=== PATIENT | male | born 1975 | race African-American/Black ===

== ENCOUNTER 2020-01-13 10:41 | Emergency (ER) | payer MEDICAID, SELFPAY ==
[2020-01-13 10:42] VITALS: BP 128/83; PULSE 73; RESP 18; TEMP 36.7; O2SAT 99; BMI 21.5
--- NOTE | 2020-01-13 11:07 | RAD_ITS ---
STUDY: X-RAY - LEFT FOOT CLINICAL: Male, 44 years old. Pain, swelling TECHNIQUE: 3 view(s) of the foot. COMPARISON: None. FINDINGS: Normal talus, calcaneus, and tarsal bones. Normal visualized subtalar, talonavicular, calcaneocuboid, tarsal and tarsometatarsal articulations. Normal metatarsi. There is degenerative arthrosis of the metatarsophalangeal joint of the hallux . Normal tibial and fibular sesamoid bones. Normal interphalangeal joint of the great toe. Normal phalanges of the great toe. Normal second through fifth metatarsophalangeal joints. Normal interphalangeal joints and phalanges of the lesser toes. The soft tissue structures are unremarkable. RAD/Foot min 3 Views IMPRESSION: First MTP joint arthrosis, otherwise unremarkable left foot Electronically Signed: Steven Shane MD at 11:20 EDT , Service support ,
--- NOTE | 2020-01-13 11:25 | ED.VIS.GEN ---
History of Present Illness Chief Complaint: Lower Extremity Injury Informant: Patient Onset: Days Maximum Severity: Mild Narrative: The patient presents complaining of left foot discomfort for a few days no specific trauma that he can recall history of gout or arthritis but he has pain over the third fourth and fifth toes of his left foot no ankle pain no heel pain no symptoms with the other foot his other health conditions are stable Coronavirus emergency is in fact no exposures Past Medical History - Allergies and Home Meds Allergies/Adverse Reactions: Allergies Penicillins Allergy (Verified 01/13/20 10:43) Hives Primary Care Physician: Miguel Acosta MD [Primary Care Provider] - Past Medical History: - Smoking Status: Never smoker Review of Systems ROS: - I really disorder General: Denies: Chills, Fever, Sweats Eyes: Denies: Visual changes - bilaterally, Diplopia ENT: Denies: Rhinorrhea, Sore throat Cardiovascular: Denies: Chest pain, Palpitations Respiratory: Denies: Dyspnea, Cough, Dyspnea on exertion Gastrointestinal: Denies: Abdominal pain, Nausea, Vomiting, Diarrhea, Melena, Hematochezia Genitourinary: Denies: Dysuria, Hematuria, Frequency Musculoskeletal: Reports: Extremity Pain. Denies: Back pain Skin: Denies: Rash, Wounds Neurological: Denies: Headache, Weakness, Numbness Physical Exam Vital Signs/Narrative: Vital Signs Temp Pulse Resp BP Pulse Ox 01/13/20 10:42 98.1 F 73 18 128/83 H 99 General: Well nourished, Well developed, No Acute Distress Head: Normocephalic, Atraumatic Eyes: Perrl, EOMI ENT: Moist mucous membranes, No rhinorrhea Neck: Supple, Nontender Cardiovascular: Regular rate, Regular rhythm, No murmurs Respiratory: No distress, CTA bilaterally, Chest nontender Abdomen: Soft, Nontender, Nondistended, Normal bowel sounds Back: Nontender, Normal Inspection Extremities: No edema, - - He has some discomfort over the dorsal foot primarily involving the third fourth and fifth toe webspace area he has obvious athlete's foot type fungus here and has some very slight reddish discoloration to the skin over the dorsal foot he has full range of motion of the toes ankle unremarkable full range of motion tib-fib knee negative plantar surface unremarkable, no skin breakdown no signs of any type of active infection or MRSA possible cellulitis he indicates he has a known history of athlete's foot no history of gout arthritis no skin breakdown blistering Skin: Normal color, No rash Neurological: Alert, Oriented x3, Cranial nerves II-XII grossly intact, Normal Strength, Normal Sensation Psychological: Normal affect, Normal Mood Diagnostic/Tx/Re-eval - Medical Decision Making Had a long conversation with the patient he cannot definitively rule out trauma x-rays obtained that shows nothing acute at this time given all the above he will be treated with resolved for the athlete's foot, clindamycin due to allergy to penicillin for possible cellulitis Naprosyn for pain to follow-up with his outpatient providers for more definitive management as he understands exact etiology remains unclear return for change in symptoms Home stable Left foot pain possible cellulitis athlete's foot ED Disposition - Plan for ED Patient: Diagnosis: Left foot pain Instructions: CONTUSION, Foot, Cellulitis Prescriptions: Clindamycin HCl [Cleocin] 300 mg PO Q6H #40 cap Prescription Printed Clotrimazole/Betamethasone Dip [Lotrisone Cream] 45 gm TP BID #1 cream..g. Prescription Printed Naproxen [Naprosyn] 500 mg PO BID PRN #20 tab Prescription Printed Referrals: Miguel Acosta MD [Primary Care Provider] -
== END 2020-01-13 11:44 | disposition home or self-care (01) ==
LOC: ED 11:42
PROVIDERS: Emergency Provider Emergency Medicine; PCP Family Medicine
DX: M79.672 Pain in left foot (principal); B35.3 Tinea pedis; Z88.0 Allergy status to penicillin; Z79.899 Other long term (current) drug therapy
CPT/HCPCS: 73630; 99282

== ENCOUNTER 2021-04-24 11:31 | Emergency (ER) | payer MEDICAID, SELFPAY ==
[2021-04-24 11:32] VITALS: BP 135/90; PULSE 73; RESP 16; TEMP 35.7; O2SAT 99; BMI 20.2
--- NOTE | 2021-04-24 11:53 | EDS_ITS ---
HPI History of Present Illness Chief Complaint: Upper Extremity Injury Informant: patient Narrative Narrative: Patient is a 45-year-old male with history of hypothyroid presenting after mechanical fall. He fell yesterday in his garage and landed on his right hand outstretched. He is right-hand dominant. Does not he has had pain over his wrist. Has not taken anything for pain. He does have some associated swelling. No associated numbness or tingling. Pain is worse with range of motion. Came to the ER for further evaluation. [facility] Medical History Hypothyroidism Home Medications levothyroxine [Levoxyl] 112 mcg PO DAILY 03/23/16 [History Last Taken 01/13/20] Allergy/AdvReac Type Severity Reaction Status Date / Time Penicillins Allergy Hives Verified 04/24/21 11:31 Social History Smoking Status: Never smoker ROS ROS ED Constitutional Constitutional ED: Denies frequent falls Eyes Eyes: Denies change in vision Cardiovascular Cardiovascular: Denies chest pain Respiratory/Chest Respiratory/Chest: Denies dyspnea Gastrointestinal Gastrointestinal: Denies abdominal pain or nausea Musculoskeletal Musculoskeletal: Reports other Details: Right wrist pain Integumentary Denies rash Neurologic Neurologic: Denies headache(s), paresthesias or weakness EXAM Physical Exam Const Vital Signs: 04/24/21 11:32 Temperature 96.2 F L Temperature Source Temporal Pulse Rate 73 Respiratory Rate 16 Blood Pressure 135/90 H Blood Pressure Mean 105 Pulse Ox 99 Oxygen Delivery Method Room Air Positive well nourished and well developed General Appearance ED: well developed HEENT Reports moist mucous membranes HEENT Narrative: No hemotympanum. No septal hematoma. normocephalic and atraumatic Eyes PERRL Neck full ROM and supple Chest Wall inspection of chest normal Resp normal respiratory effort and clear to auscultation bilaterally Cardio regular rate and regular rhythm Cardio Narrative: 2+ bilateral radial pulses. Extremity Extremity Narrative: Patient has some swelling and tenderness palpation over the distal ulna. Range of motion intact but pain with flexion of the wrist as well as supination and radial deviation of the wrist. Normal strength of the intrinsic and extrinsic muscles of the hands. Neuro oriented x3 Neuro Narrative: Normal sensation and strength in all dermatomes of the right upper extremity Sensorium / Orientation: alert Psych mental status grossly normal Skin Lesions: no lesions Rashes: no rashes MDM MDM MDM Narrative Medical decision making narrative: Patient evaluated for right wrist injury. He had a fall yesterday. He appears nontoxic in no acute distress. He is neurovascularly intact. No other signs of injury or trauma. X-ray obtained does not show any acute fracture. Does not have any scaphoid tenderness. Patient is given a splint for comfort. Instructed to take NSAID therapy as needed for pain. Instructed to follow-up with his primary care doctor in 7 to 10 days if he continues to have pain for repeat x-ray to rule out occult fracture. Patient is counseled on signs and symptoms requiring return to the emergency room. Patient verbalizes agreement and understand this plan. Patient discharged home in stable and improved condition. Radiography Diagnostic Testing: Right wrist x-ray?normal Discharge Plan Triage Chief Complaint: Upper Extremity Injury ED Provider: Ching Montiel Dx/Rx/DC Orders Clinical Impression: Right wrist sprain Instructions: ED Wrist Sprain Prescriptions: No Action levothyroxine [Levoxyl] 100 MCG tablet 112 mcg PO DAILY RF: 0 Primary Care Provider: Miguel Acosta Referrals: Miguel Acosta MD [Primary Care Provider] - Activity Restrictions/Additional Instructions: Nothing appears to be broken on the x-ray. If you continue have pain please follow-up with your primary care doctor for repeat x-ray in 7 to 10 days. Wear splint as needed for comfort. Take ibuprofen as needed for pain/anti- inflammatory. Disposition Disposition: Home, Self Care Discharge Date/Time: 04/24/21 12:45
--- NOTE | 2021-04-24 11:55 | RAD_ITS ---
STUDY: X-RAY - RIGHT WRIST REASON FOR EXAM: Male, 45 years old. Injury/Pain TECHNIQUE: view(s) of the wrist were obtained. COMPARISON: None. FINDINGS: There is no evidence of osseous or articular abnormality no soft tissue swelling identified. The navicular bone is intact. RAD/Wrist min 3 Views IMPRESSION: Normal x-ray examination of the wrist. Electronically Signed: Pravin Krishna, at 12:13 EDT Tel , Service support ,
== END 2021-04-24 12:45 | disposition home or self-care (01) ==
PROVIDERS: Emergency Provider Emergency Medicine; PCP Family Medicine
DX: S63.501A Unspecified sprain of right wrist, initial encounter (principal); W01.10XA Fall on same level from slipping, tripping and stumbling with subsequent striking against unspecified object, initial encounter; Y93.9 Activity, unspecified; Y92.008 Other place in unspecified non-institutional (private) residence as the place of occurrence of the external cause; Y99.9 Unspecified external cause status; E03.9 Hypothyroidism, unspecified; Z79.890 Hormone replacement therapy
CPT/HCPCS: 73110; 99283

== ENCOUNTER 2025-10-14 00:04 | Emergency (ER) | payer OTHER, SELFPAY ==
[2025-10-14 00:06] VITALS: BP 171/87; PULSE 67; RESP 18; TEMP 37.1; O2SAT 100; BMI 22.0
[2025-10-14 00:09] VITALS: BP 171/87; PULSE 67; RESP 18; TEMP 37.1; O2SAT 100
[2025-10-14] MEDS: Lidocaine 2% /Epi 1:100 (20ml) 20 ML VIAL INFILT (00:33)
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
--- NOTE | 2025-10-14 00:54 | EX.ED.DYSGE1 ---
HPI History of Present Illness Chief Complaint: Dental Informant: patient Narrative Narrative: Patient is a 49-year-old male with past medical history of hypothyroidism. He states he was seen by the dentist 1 week ago and was informed he has a cavity and was developing an infection secondary to it. He states he has been taking 300 mg of clindamycin 3 times a day for the last week. Despite doing this in the last 24 hours she has had increased pain and swelling to the left side of his face. He denies any trauma prior to the swelling occurring. He denies difficulty breathing or swallow. However with the worsening symptoms despite taking his antibiotic he presents for evaluation [facility] Medical History (Updated 10/14/25 @ 01:[address] Rowdy Krishnamurthy, DO) Heart attack Hypothyroidism Home Medications ?Medication ?Instructions ?Recorded ?Last Taken ?Type levothyroxine 100 mcg tablet 112 mcg PO DAILY 03/23/16 01/13/20 History (Levoxyl) clindamycin HCl 300 mg capsule 300 mg PO TID 10/14/25 Unknown History doxycycline monohydrate 100 mg 100 mg PO BID 7 days #14 CAPSULES 10/14/25 Unknown Rx capsule oxycodone-acetaminophen 5 mg-325 1 tab PO Q6H PRN pain 3 days #12 10/14/25 Unknown Rx mg tablet (Percocet) tabs Allergy/AdvReac Type Severity Reaction Status Date / Time bee venom protein (honey Allergy Severe Anaphylaxis Verified 10/14/25 00:07 bee) (bee sting) coconut Allergy Severe Anaphylaxis Verified 10/14/25 00:07 Fish Containing Products Allergy Severe Anaphylaxis Verified 10/14/25 00:07 mushroom Allergy Severe Anaphylaxis Verified 10/14/25 00:07 raspberry Allergy Severe Anaphylaxis Verified 10/14/25 00:07 Penicillins Allergy Hives Verified 10/14/25 00:07 Family History no significant family his Surgical History (Updated 10/14/25 @ 00:07 by Marko Lainez) History of dental surgery Social History Smoking Status: Never smoker ROS ROS ED Constitutional Constitutional ED: Denies chills or fever(s) ENT ENT ED: Reports other Details: Positive facial pain and facial swelling. Cardiovascular Cardiovascular: Denies chest pain Respiratory/Chest Respiratory/Chest: Denies cough or dyspnea Gastrointestinal Gastrointestinal: Denies abdominal pain, diarrhea, nausea or vomiting Musculoskeletal Musculoskeletal: Denies neck pain Integumentary Reports abscess Neurologic Neurologic: Denies headache(s) Hematologic/Lymphatic Hematologic/Lymphatic: Denies easy bleeding or easy bruising Allergic/Immunologic Allergic/Immunologic ED: Denies mouth swelling, tongue swelling or urticaria EXAM Physical Exam Const Vital Signs: 10/14/25 00:06 10/14/25 00:09 10/14/25 00:59 Temperature 98.7 F 98.7 F 98.7 F Temperature Source Oral Oral Pulse Rate 67 67 82 Respiratory Rate 18 18 18 Blood Pressure 171/87 H 171/87 H 159/95 H Blood Pressure Mean 115 115 116 Pulse Ox 100 100 100 Oxygen Delivery Method Room Air Room Air Positive well nourished and well developed General Appearance ED: well developed; Negative for pallor HEENT HEENT Narrative: Normocephalic atraumatic No tongue or lip swelling noted; no airway edema or compromise Patient has soft tissue swelling to the left upper cheek/zygomatic arch region without overlying erythema or warmth Internal exam reveals dental caries and there is soft tissue swelling/abscess of the left upper gingiva near tooth #13 consistent with abscess No signs of ANUG Eyes PERRL and EOMs intact bilaterally Neck supple Neck Narrative: No brawny edema in the submental space to suggest Benjamin's angina Positive anterior cervical lymphadenopathy noted on left Resp normal respiratory effort and clear to auscultation bilaterally Cardio regular rate and regular rhythm Extremity normal to inspection Neuro oriented x3, CN's II-XII intact bilaterally and no sensory deficits noted Sensorium / Orientation: alert Motor Exam: strength 5/5 throughout Psych Mood & Affect: anxious Skin Skin Narrative: Soft tissue swelling to left upper cheek consistent with dental abscess as documented above General Skin Exam: Negative for jaundice or pallor MDM MDM MDM Narrative Medical decision making narrative: Patient arrived to the ER hypertensive but was anxious and otherwise vitals are stable. He reports he has been on an antibiotic for the past 7 days and despite doing this is it increased pain and swelling to the left side of his face without trauma. Physical exam displays dental caries with findings of dental abscess. He does not have signs of ANUG or Benjamin's angina nor is there airway edema or compromise so there is no need for emergent imaging or laboratory studies. As the patient is already been on antibiotics and is having worsening symptoms I did elect to perform an incision and drainage as documented below. Now that the area has been opened and drained and the patient does not have findings of systemic infection or airway compromise on exam he is otherwise safe for discharge. In order to cover for any remaining infection I will change him to doxycycline as he is already been on clindamycin and has a penicillin allergy. Patient was given a left superior alveolar dental block using 1.5 mL of 2% lidocaine with epinephrine and 1.5 mL of 0.5% Marcaine. Following anesthesia a #11 blade scalpel was used to make a 1 cm incision across the area of fluctuance to the left upper gingiva. A moderate amount of blood and purulent material was expressed. Patient tolerated the procedure well without complication History & Record Review Discussion w/independent historian: Patient Discharge Plan Triage Chief Complaint: Dental ED Provider: Rowdy Krishnamurthy Dx/Rx/DC Orders Clinical Impression: Dental abscess, Hypothyroidism Instructions: Dental Abscess, ED Abscess Incision And Drainage Prescriptions: New doxycycline monohydrate 100 mg capsule 100 mg PO BID 7 Days Qty: 14 0RF oxycodone-acetaminophen [Percocet] 5-325 mg tablet 1 tab PO Q6H PRN (Reason: pain) 3 Days Qty: 12 0RF No Action levothyroxine [Levoxyl] 100 MCG tablet 112 mcg PO DAILY clindamycin HCl 300 mg capsule 300 mg PO TID Primary Care Provider: Miguel Acosta Referrals: Miguel Acosta MD [Primary Care Provider, [facility]] Activity Restrictions/Additional Instructions: Please continue with salt water gargles for the next 2 to 3 days to help pull out any further infectious fluid left in the abscess. Take the doxycycline twice a day for the next 7 days to resolve any remaining infection as well. After 48 to 72 hours you should notice that pain and swelling has almost completely resolved. If symptoms reaccumulate or you have any further concerns return to the ER for repeat evaluation Print Language: [place] Disposition Disposition: Home, Self Care Discharge Date/Time: 10/14/25 01:02
[2025-10-14 00:59] VITALS: BP 159/95; PULSE 82; RESP 18; TEMP 37.1; O2SAT 100
== END 2025-10-14 01:02 | disposition home or self-care (01) ==
PROVIDERS: Emergency Provider Emergency Medicine; PCP Family Medicine; Visit Provider Emergency Medicine
DX: K04.7 Periapical abscess without sinus (principal); E03.9 Hypothyroidism, unspecified; Z79.890 Hormone replacement therapy
CPT/HCPCS: 41800; 64400; 99283